=== PATIENT | female | born 2000 | race Caucasian/White ===

== ENCOUNTER 2023-12-14 17:43 | Outpatient (RCR) | payer MEDICAID, SELFPAY ==
--- NOTE | ~2023-12-14 | US_ITS ---
EXAMINATION: US OB BPP wo non-stress DATE: 12/14/2023 20:20 INDICATION: Nonreactive nonstress test. Third trimester. TECHNIQUE: Real-time pelvic ultrasound was performed. COMPARISON: None. FINDINGS: There is a single living fetus in vertex presentation. The placenta is posterior, >5 cm from the cer vix. heart rate is 147 beats per minute (bpm). The amniotic fluid index is 10.6 cm, which is no rmal. Biophysical profile performed by the technologist: breathing (30 sec sustained breathing in 30 minutes): 2 out of 2 movement (3 gross body movements in 30 minutes): 2 out of 2 tone (one episode of secglyh-mdkwlsxoz-xgwybym limb movement): 2 out of 2 Amniotic fluid pocket (2 cm): 2 out of 2 Total score: 8 out of 8 IMPRESSION: 1. Single living fetus in vertex presentation. 2. Biophysical profile 8 out of 8. Reviewed, dictated and finalized at location E. RTAINMENT MUSICIAN
--- NOTE | 2023-12-14 20:23 | PC.NURSE ---
2022- [facility] updated on results of BPP and NST. orders received for dischage.
== END 2024-03-13 23:59 | disposition home or self-care (01) ==
LOC: ANHOBOP 17:43
PROVIDERS: Visit Provider Advanced Practice Midwife
DX: O26.893 Other specified pregnancy related conditions, third trimester (principal); Z3A.33 33 weeks gestation of pregnancy
CPT/HCPCS: 59025; 76819

== ENCOUNTER 2024-01-11 17:16 | Outpatient (CLI) | payer BC, SELFPAY ==
--- NOTE | ~2024-01-11 | US_ITS ---
EXAMINATION: US OB BPP wo non-stress DATE: 01/11/2024 18:13 INDICATION: Chronic hypertension. Third trimester. TECHNIQUE: Real-time pelvic ultrasound was performed. COMPARISON: Ultrasound 12/14/2023 FINDINGS: There is a single living fetus in vertex presentation. The placenta is posterior. heart rate i s 136 beats per minute (bpm). The amniotic fluid index is 9.7 cm, which is normal. Biophysical profile performed by the technologist: breathing (30 sec sustained breathing in 30 minutes): 2 out of 2 movement (3 gross body movements in 30 minutes): 2 out of 2 tone (one episode of krqbcng-dpgdtahkm-jtczeji limb movement): 2 out of 2 Amniotic fluid pocket (2 cm): 2 out of 2 Total score: 8 out of 8 IMPRESSION: 1. Single living fetus in vertex presentation. 2. Biophysical profile 8 out of 8. Reviewed, dictated and finalized at location E. ING RINK MANAGER
--- NOTE | 2024-01-11 18:14 | PC.NURSE ---
Patient came in for BPP. BPP 06/14. Called Pawan Velasco CNM with results. Verbal orders given to discharge patient to home.
== END 2024-01-11 18:15 | disposition home or self-care (01) ==
LOC: ANHOBOP 17:25 → ANHLDR 17:27
PROVIDERS: Visit Provider Advanced Practice Midwife
DX: O13.9 Gestational [pregnancy-induced] hypertension without significant proteinuria, unspecified trimester (principal); Z3A.00 Weeks of gestation of pregnancy not specified
CPT/HCPCS: 76819; 99199

== ENCOUNTER 2024-01-18 04:52 | Inpatient (IN) | payer OTHER, SELFPAY ==
[2024-01-18] VITALS (89 sets, daily range): BP systolic 88–157; BP diastolic 44–94; PULSE 89–136; RESP 18; TEMP 35.7–37.4; O2SAT 97–100; BMI 34.0
[2024-01-18] MEDS: LACTATED RINGERS 1,000 ML 125 ML IV CONT ×2 (06:47→12:48)
[2024-01-18] MEDS: OXYTOCIN 30 UNITS/NS 500 ML 30 UNITS/500 ML BAG IV CONT (06:49)
[2024-01-18 06:50] LABS: Basophils Percent Auto 0.2 % (0.2-1.2); Eosinophils Absolute Auto 0.1 K/mm3 (0-0.3); Eosinophils Percent Auto 0.8 % (0-4.4); Hematocrit 33.4 % (37.0-47.0); Hemoglobin 10.5 g/dL (12.0-15.0); Immature Granulocyte Absolute 0.12 K/mm3 (0.00-0.031); Immature Granulocyte Percent A 0.7 % (0-0.5); Lymphocytes Absolute Auto 2.13 K/mm3 (0.9-3.2); Lymphocytes Percent Auto 12.9 % (18.3-44.2); Mean Corpuscular HGB Conc 31.4 g/dl (32-36); Mean Corpuscular Hemoglobin 25.2 pg (26-34); Mean Corpuscular Volume 80.1 fl (80-100); Mean Platelet Volume 10.1 fl (7.4-10.4); Monocytes Absolute Auto 1.1 K/mm3 (0.1-0.6); Monocytes Percent Auto 6.9 % (2.6-8.5); Neutrophils Percent Auto 78.5 % (45.5-73.1); Platelet Count Result 292 k/mm3 (150-375); Red Blood Count 4.17 M/mm3 (4.2-5.4); Red Cell Distribution Width 15.1 % (11.5-14.5); White Blood Count 16.5 K/mm3 (4.5-10.0)
--- NOTE | 2024-01-18 07:04 | OBADM ---
This patient, Rosalia Dwyer, admitted to the OB room Labor/Delivery/Recovery 103 for observation. Patient/family oriented to hospital policies and general routines including ID bracelet, bed and alarms, visiting hours, pain management, procedures, bathroom and other care routines, personal items, smoking policy, room service/diet, and visiting hours. Patient/Family are encouraged to report perceived risks to care and to ask questions if they do not understand what they are told or what they should do.
--- NOTE | 2024-01-18 07:30 | WPDOBADMIT ---
Obstetrics - Admit Note Admission Note: record reviewed. No pertinent additions to the history and/or any subsequent changes in the physical findings that are not consistent with the expected course of the were found. Additions to the history and/or subsequent changes in the physical findings follow. IOL, CHTN, SVE /-1 AROM large amount of clear, odorless fluid
--- NOTE | 2024-01-18 08:28 | P.PNAN_ITS ---
Anes - Eval Pre Procedure Procedure: Labor epidural Date/Time: 01/18/24 08:28 Surgeon: Veronica Preop Diagnosis: Pain during labor Pre Op Diagnosis: IOL Patient Data Age: 23 Gender: F Height: 1.63 m Weight: 90 kg Last Vital Signs Temp 35.7 C L 01/18/24 08:00 Pulse 109 H 01/18/24 08:15 BP 109/59 L 01/18/24 08:15 O2 Del Method Room Air 01/18/24 06:59 Allergies Allergy/AdvReac Type Severity Reaction Status Date / Time No Known Allergies Allergy Verified 01/07/24 15:42 Home Medications Medication Instructions Recorded Confirmed Type prenat.vits,gardenia,hxt-tdum-xkxye 1 tablet 01/07/24 History Laboratory Tests 01/18/24 06:29 WBC 16.5 H K/mm3 (4.5-10.0) RBC 4.17 L M/mm3 (4.2-5.4) Hgb 10.5 L g/dL (12.0-15.0) Hct 33.4 L % (37.0-47.0) MCV 80.1 fl (80-100) MCH 25.2 L pg (26-34) MCHC 31.4 L g/dl (32-36) RDW 15.1 H % (11.5-14.5) Plt Count 292 k/mm3 (150-375) MPV 10.1 fl (7.4-10.4) Immature Gran % (Auto) 0.7 H % (0-0.5) Neut % (Auto) 78.5 H % (45.5-73.1) Lymph % (Auto) 12.9 L % (18.3-44.2) [place] % (Auto) 6.9 % (2.6-8.5) Eos % (Auto) 0.8 % (0-4.4) Baso % (Auto) 0.2 % (0.2-1.2) Lymph # (Auto) 2.13 K/mm3 (0.9-3.2) [place] # (Auto) 1.1 H K/mm3 (0.1-0.6) Eos # (Auto) 0.1 K/mm3 (0-0.3) Baso # (Auto) 0.0 K/mm3 (0.0-0.1) Abs Immat Gran (auto) 0.12 H K/mm3 (0.00-0.031) Absolute Neuts (auto) 13.0 H K/mm3 (1.3-6.7) Absolute Nucleated RBC 0.000 K/mm3 (0.0-0.012) Nucleated RBC % 0.0 % (0.0-0.2) RPR Pending Blood Type A Positive Antibody Screen Negative Patient hx anesthesia problems: none Family hx anesthesia problems: none Results Review: All pre-operative results and documents have been reviewed as part of the pre- operative evaluation. [facility] Family History Family History Grandparent Diabetes mellitus Social History Social History Smoking status: Never smoker Second hand tobacco smoke exposure: No Substance use: never Do You Feel Safe in your Home?: Yes Lack of Transportation: No Lack of Food: Never True Current Housing: I Have Housing Concerned About Future Housing: No Difficulty Paying Gas/Electric Bills: No Difficulty Paying for Meds: No Currently Unemployed: No Education: Associate Degree Difficulty w/ Childcare or Family Care: No Spiritual care concerns: No Exam Day of Procedure 01/18/24 08:28 Patient weight: obese Neurological: alert and oriented
[2024-01-18] MEDS: ACETAMINOPHEN 500 MG TABLET 1000 MG PO (10:33)
[2024-01-18 11:42] LABS: Rapid Plasma Reagin Non-Reactive (NonReactive)
[2024-01-18] MEDS: miSOPROStol 200 MCG TABLET 800 MCG (15:28)
--- NOTE | 2024-01-18 15:31 | PM.OBPRVD ---
OB - Vaginal Delivery Note Procedure Delivery date: 01/18/24 Events: Chronic Hypertension Induction method: AROM and Per Pitocin Protocol Delivery monitor: External FHT and External Uterine Route of delivery: Episiotomy description: None Laceration Description: Periurethral (right) Delivery repair: vicryl Specimen: No Quantitative Blood Loss (ml): 100 Anesthesia type: Epidural Disposition: Floor [place] Baby Date of : 01/18/24 Time of : 15:16 Weeks of gestation at delivery: 38 gender: Female Weight (pounds): 6 Weight (ounces): 12 presentation: vertex position: Left Occiput Anterior Placenta delivery description: Spontaneous Cord Vessel Description: 3 Vessels, Nuchal Cord (x1) and Delayed Cord Clamping score one minute: 7 score five minutes: 9 Narrative: mother and baby skin to skin in stable condition
[2024-01-18] MEDS: OXYTOCIN 30 UNITS/NS 500 ML 30 UNITS/500 ML BAG 125 UNITS IV CONT (15:46)
[2024-01-18] MEDS: WITCH HAZEL 40 PADS 1 PAD TOPICAL (17:53)
[2024-01-18] MEDS: BENZOCAINE 20% AER SPR (*SP) 56 GM CAN 1 SPRAY TOPICAL (17:53)
[2024-01-18] MEDS: IBUPROFEN 600 MG TABLET PO (17:55)
[2024-01-19] VITALS: BP 114/70; PULSE 90; RESP 18; TEMP 37.1; O2SAT 98
[2024-01-19] MEDS: IBUPROFEN 600 MG TABLET PO ×3 (04:17→19:50)
[2024-01-19 04:33] VITALS: BP 131/84; PULSE 98; RESP 18; TEMP 37.2; O2SAT 98
[2024-01-19 05:51] LABS: Hematocrit 32.1 % (37.0-47.0); Hemoglobin 10.1 g/dL (12.0-15.0)
--- NOTE | 2024-01-19 08:18 | PM.OBPNVD ---
OB - PN: Subj Subjective Date/time seen: 01/19/24 08:18 Patient comments: no complaints, pain well controlled, incisional pain, tolerating diet and flatus present OB - PN: Obj Data Labs 01/19/24 04:20 Labs: Laboratory Results - last 24 hr 01/18/24 01/19/24 06:29 04:20 Hgb 10.1 L Hct 32.1 L RPR Non-reactive OB - PN A/P Plan day: 1 Plan: routine care Comments: No problems, routine care Time Spent With Patient Time: Total time spent is greater than 50% in coordination of care (as documented) at patient's floor/unit and/or counseling patient: Exam Const: General: comfortable, no acute distress and alert Resp: Effort & Inspection: normal respiratory effort Auscultation: no crackles, no rales and no rhonchi Cardio: Rate: regular rate Heart sounds: no click, no murmurs and no rubs GI: Inspection: non-distended GI Palp: No Tenderness to palpation present (GI) Auscultation: normal bowel sounds Other: Incision - CDI Extrem: General: normal to inspection, no pedal edema and no calf tenderness
[2024-01-19 08:20] VITALS: BP 128/75; PULSE 87; RESP 18; TEMP 36.8; O2SAT 99
--- NOTE | 2024-01-19 08:32 | WPDANLDPN2 ---
Anes-Prog Note L&D Date/Time: 01/19/24 08:32 Neuro status: Neuro function grossly intact. Vital Signs: Last Vital Signs Temp 37.2 C 01/19/24 04:33 Pulse 98 01/19/24 04:33 Resp 18 01/19/24 04:33 BP 131/84 01/19/24 04:33 Pulse Ox 98 01/19/24 04:33 O2 Del Method Room Air 01/18/24 20:28 Pain score (VAS): 0 I/O: Intake & Output 01/18/24 01/19/24 01/19/24 23:59 07:59 15:59 Intake Total 1000 300 Output Total 100 500 Balance 900 -200 Patient feedback: Patient satisfied with anesthetic care.
[2024-01-19] MEDS: DOCUSATE SODIUM 100 MG CAPSULE PO (12:25)
[2024-01-19 12:45] VITALS: BP 127/75; PULSE 102; RESP 16; TEMP 37.2; O2SAT 99
--- NOTE | 2024-01-19 15:34 | PC.NURSE ---
[id number] Introductions were made, then consulted with patient to assess needs related to . Mother led the conversation with her?plans to feed?her infant for a year, the?experience so far, and infant bottle fed with unknown reason for supplementation. Discussed the risks and benefits of early supplementation and how to protect her milk supply. Infant's mouth assessment there is a tight lower frenulum visualized with slight restriction. Encouraged understanding of the benefits of skin to skin (demonstrating unwrapping infant and placing upright on her chest), stimulating with massage touch, changing positions to encourage wakefulness, how to watch for early feeding cues, responsive feeding, feeding on demand (aiming for 8-12 times in 24 hours, about every 2-3 hours), milk production, building/maintaining a milk supply, duration of feeding, signs of adequate intake/output and how to record on the feeding sheet. Mother works well with her infant with encouragement, education, and breast are soft with everted nipples. Reviewed positioning and ear, shoulder, hip alignment, supporting the breast to facilitate a deep latch, asymmetrical latch (off-center), leading with the chin with a big, open, wide gape and body close to mother. Infant latched optimally to the right breast in cross cradle position. Education given to the mother of how to visualize the suckling (with good rocking jaw motion), swallows (dropping of the lower jaw) and how to listen for drinking at the breast (the ka sound) and demonstrates. Infant was able to maintain latch without pain to mother protecting the nipple with optimal positioning and latching. Mother has a pump in her room and doesn't consistently pump, however; was encouraged to pump if infant received a formula bottle to encouraged the milk supply. Reviewed comfort measures of healing with a warm, wet washcloth to rinse breast, then leave open to air-dry, good handwashing when or touching the breast/nipples to prevent infection. Mother voiced understanding of skin to skin, stimulating with massage touch, responsive feedings, hand expressed colostrum, talking to to encourage if it has been 2 -2.5 hours since the start of the last , to call if does not latch, or if there is discomfort with . Resources used for education were facilitated with the visual educational handouts/ tool. Inpatient/outpatient resources provided with name written on the communication board. Mother voiced understanding of information, demonstrated learning and will call if there is a request for assistance. Reported to the Primary RN.
[2024-01-19] MEDS: ACETAMINOPHEN 325 MG TABLET 650 MG PO (17:36)
[2024-01-19 20:24] VITALS: BP 126/68; PULSE 99; RESP 18; TEMP 36.9; O2SAT 98
[2024-01-19 23:56] VITALS: BP 137/70; PULSE 86; RESP 16; TEMP 36.7; O2SAT 98
[2024-01-20 03:30] VITALS: BP 105/56; PULSE 85; RESP 16; TEMP 36.8; O2SAT 100
[2024-01-20] MEDS: IBUPROFEN 600 MG TABLET PO (05:17)
--- NOTE | 2024-01-20 08:18 | PM.OBPNVD ---
OB - PN: Subj Subjective Date/time seen: 01/20/24 08:18 Interval history: pp day 2 d/c home OB - PN: Obj Data Labs 01/19/24 04:20 OB - PN A/P Plan day: 2 Plan: routine care and discharge home Time Spent With Patient Time: Total time spent is greater than 50% in coordination of care (as documented) at patient's floor/unit and/or counseling patient: Review of Systems Review of Systems: All systems reviewed & are unremarkable except as noted in HPI and below Exam Const: General: cooperative and healthy appearing Chest: Chest palpation & inspection: normal inspection of the chest Resp: Effort & Inspection: normal respiratory effort Back/Spine/Pelvis: Back: no CVA tenderness Skin: General skin exam: normal color
--- NOTE | 2024-01-20 08:27 | P.DS_ITS ---
DS: Admitting Diagnosis Discharge Date 01/20/24 Admitting Diagnosis IOL DS: Discharge Diagnosis Discharge Diagnosis (1) Vaginal delivery: Code(s): O80 - Encounter for full-term uncomplicated delivery Status: Acute OB - DS: Summary OB Procedures : None OB Procedures Intrapartum: Spontaneous Vag Delivery OB Procedures: : None Peripartum Data Laceration Description: Periurethral (right) Episiotomy description: None Time Spent with Patient Time attestation: Total time spent providing and/or coordinating discharge services: Discharge Plan Discharge Attending physician on discharge: Blaire Martin Discharging Clinician: Aleksandra Velasco Patient Disposition: Home, Self-Care Activity: pelvic rest Diet: regular Patient Instructions: Antibiotic Form Stand Alone Forms: General Discharge Information Follow-up/Referrals: Aleksandra Velasco CNM [Certified Nurse Granulating Machine Operator] - 4 Weeks Discharge Medications: New ibuprofen 600 mg Tablet 600 mg PO Q6H PRN (Reason: Cramping) Qty: 30 0RF Continued #2 Tablet 1 tablet Date of admission: 01/18/24 04:52 Primary Care Provider: PHYSICIAN,ELECTRONICS HARDWARE DESIGN ENGINEER Admitting Provider: Blaire Martin Attending physician on admission: Blaire Martin Condition: Stable
[2024-01-20 09:05] VITALS: BP 119/78; PULSE 82; RESP 16; TEMP 36.8; O2SAT 100
--- NOTE | 2024-01-20 16:07 | PC.NURSE ---
[id number] Consulted with patient to assess needs related to . Discussed with mother her successes, concerns and any questions she has. We reviewed working with the , supporting breast, protecting her nipples with an optimal deep latch, good positioning, and good hand washing. Encouraged understanding the benefits of skin to skin, responding to feeding cues, frequencies of feeding 8-12 times in 24 hours (approximately 2-3 hours), duration of feedings, milk production, intake/output feeding sheet and signs of adequate intake encouraging swallowing at the breast. Reviewed positioning and alignment, supporting breast, off-centered (asymmetrical latch) and leading with the chin with big, open, wide gape. Infant latched optimally to the left, then the right breast in football position. Education given to the mother of how to visualize the suckling (with good rocking jaw motion) swallows (dropping of the lower jaw) and how to listen for drinking at the breast (the ka sound)and demonstrated well on the left, with more of a chomping motion on the right. The was able to maintain latch without discomfort to mother. After no swallowing visualized on the right breast, was placed back on the left and more swallowing was visualized. Nipple care reviewed with optimal latch, good positioning and using clean hands when touching her breast. Mother is feeding appropriately for growth of and understands stimulating infant to eat if needed and reviewed the importance of 8-12 times in a 24 hour period. has had appropriate feedings in the last 24 hours meets the outcomes for weight, output, blood sugar and jaundice (discussed not letting infant go 5 hours without . If infant doesn't wake to eat, then bottle feed with supplement either with EBM or formula) at this time. Reinforced understanding of milk production, transition of milk, signs of adequate intake, transition of stool, prevention/relief of engorgement, plugged ducts, mastitis, responsive watching for feeding cues, the different methods of stimulating to breastfeed 1-3 hours after the start of the last feeding, community resources, and when to call a provider using the resource of the feeding sheet along with the mom and baby guide. Parents voiced understanding of the information shared, is confident to continue effectively her at home, when to call for assistance, denies any additional assistance or education at this time. Reported to the Primary RN.
[2024-01-23 09:45] VITALS: BP 127/89; PULSE 78; RESP 18; TEMP 36.6; O2SAT 100
== END 2024-01-20 15:10 | disposition home or self-care (01) | DRG 560 ==
LOC: ANHLDR 04:56 → ANHOB2 18:18
PROVIDERS: Admitting Provider Obstetrics & Gynecology; Referring Provider Advanced Practice Midwife; Visit Provider Obstetrics & Gynecology
DX: O10.92 Unspecified pre-existing hypertension complicating childbirth (principal); Z37.0 Single live birth; Z3A.38 38 weeks gestation of pregnancy; O71.82 Other specified trauma to perineum and vulva; O69.81X0 Labor and delivery complicated by cord around neck, without compression, not applicable or unspecified
CPT/HCPCS: 36415; 85014; 85018; 85025; 86592; 86850; 86900; 86901; A9270; J2590; J2795; J7120